=== PATIENT | female | born 2000 | race African-American/Black ===

== ENCOUNTER 2023-02-12 10:46 | Emergency (ER) | payer OTHER ==
[~2023-02-12] VITALS: Ht 167.6 cm; Wt 100.7 kg
[2023-02-12 12:39] VITALS: BP 124/76
== END 2023-02-12 12:43 | disposition home or self-care (01) | DRG 556 ==
LOC: ED 10:46
DX: M25.562 Pain in left knee (principal); V43.63XA Car passenger injured in collision with pick-up truck in traffic accident, initial encounter